=== PATIENT | female | born 1990 | race Caucasian/White ===

== ENCOUNTER 2022-11-09 01:42 | Inpatient (IN) | payer BC ==
[2022-11-09] MEDS ORDERED: TRANEXAMIC 1,000 MG/100ML-NACL 1,000 MG in EMPTY BAG 1 BAG IV PRN (02:26)
[2022-11-09] MEDS ORDERED: LIDOCAINE 0.5% (PF) 5 MG/ML (50 ML SDV) SQ PRN (02:26)
[2022-11-09] MEDS ORDERED: CARBOPROST TROMETHAMINE 250 MCG/ML 1 ML AMP IM PRN (02:26)
[2022-11-09] MEDS ORDERED: OXYTOCIN 10 UNIT/ML 1 ML VIAL IM PRN (02:26)
[2022-11-09] MEDS ORDERED: miSOPROStoL 200 MCG TAB PO PRN (02:26)
[2022-11-09] MEDS ORDERED: TERBUTALINE 1 MG/ML VIAL SQ PRN (02:26)
[2022-11-09] MEDS ORDERED: METHYLERGONOVINE 0.2 MG/ML 1 ML AMP IM PRN (02:26)
[2022-11-09] MEDS ORDERED: OXYTOCIN 30 UNITS/500 ML NS 30 UNIT in SALINE 1 500ML.BAG IV SCH (02:30)
[2022-11-09 05:14] LABS: Basophils # (A) 0.1 k/uL (0-0.2); Basophils % (A) 0 %; Eosinophils # (A) 0.1 k/uL (0-0.7); Eosinophils % (A) 1 %; HCT 35.4 % (34.0-46.0); Lymphocytes # (A) 2.4 k/uL (1.0-4.8); Lymphocytes % (A) 18 %; MCH 30.5 pg (25.0-35.0); MCHC 33.9 g/dL (31.0-37.0); MCV 89.9 fL (80.0-100.0); Mean Platelet Volume 8.6; Monocytes # (A) 0.7 k/uL (0-1.0); Monocytes % (A) 5 %; Neutrophils # (A) 9.7 k/uL (1.3-7.7); Neutrophils % (A) 75 %; Platelet Count 214 k/uL (150-450); RBC 3.94 m/uL (3.80-5.40); RDW 12.8 % (11.5-15.5)
[2022-11-09] MEDS: LACTATED RINGERS 1,000 ML IV SCH ×3 (05:16→21:01)
[2022-11-09 10:49] LABS: Glucose,Whole Blood 83 mg/dL (70-110)
[2022-11-09] MEDS ORDERED: fentaNYL (PF) 50 MCG/ML 5 ML AMP ONE (13:14)
[2022-11-09] MEDS ORDERED: ROPIVACAINE 5 MG/ML 20 ML AMPULE ONE (13:14)
[2022-11-09] MEDS ORDERED: SODIUM CHLORIDE 0.9% 100 ML BAG ONE (13:14)
--- NOTE | 2022-11-09 13:28 | P.HPOB ---
History of Present Illness H&P Date: 11/09/22 Chief Complaint: Spontaneous rupture of membranes This is a 31-year-old female 1 para 0 with an estimated date of confinement of 11/14/2022, estimated gestational age of 39-2/7 weeks, who presents to labor and delivery with complaints of spontaneous rupture membranes with clear fluid noted at approximately 12:55 AM this morning. She was feeling mild cramping at that time but has started to feel stronger contractions now. care has been with Dr. Goss and has been uncomplicated per patient. She does have a note of a small succenturiate lobe noted on pelvic ultrasounds. Her 1 hour Glucola was high but 3 hour was within normal limits. labs: Group B streptococcus-negative One hour Glucola-147 Three-hour Glucola-within normal limits MaterniT 21-negative Hepatitis B surface antigen-negative RPR-nonreactive Rubella-immune Blood type-A+ HIV-nonreactive Hemoglobin-13 Toxoplasma screen-negative Hepatitis C virus antibody-negative Random glucose-80 GC/chlamydia/Trichomonas-negative Obstetrical history: Social history: She is . 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 Review of Systems Constitutional: Denies chills, Denies fever Eyes: denies blurred vision, denies pain Ears, nose, mouth and throat: Denies headache, Denies sore throat Cardiovascular: Denies chest pain, Denies shortness of breath Respiratory: Denies cough Gastrointestinal: Reports abdominal pain (Irregular contractions) Genitourinary: Reports pelvic pain, Reports Musculoskeletal: Reports low back pain Past Medical History Past Medical History: No Reported History History of Any Multi-Drug Resistant Organisms: None Reported Past Surgical History: No Surgical Hx Reported Past Anesthesia/Blood Transfusion Reactions: No Reported Reaction Past Psychological History: No Psychological Hx Reported Smoking Status: Never smoker Past Alcohol Use History: Rare Past Drug Use History: None Reported - Past Family History Mother Family Medical History: Hypertension Father Family Medical History: Hypertension Medications and Allergies Home Medications Medication Instructions Recorded Confirmed Type Vit No.179/Iron/Folic 1 each PO DAILY 11/09/22 11/09/22 History [ Tablet] Allergies Allergy/AdvReac Type Severity Reaction Status Date / Time COVID-19 (SARS-CoV-2) Allergy Anaphylaxis Verified 11/09/22 07:21 vaccine, corinna Latex, Natural Rubber Allergy Swelling Verified 11/09/22 02:01 tdap vaccine Allergy Anaphylaxis Uncoded 11/09/22 07:21 Exam Osteopathic Statement: *. No significant issues noted on an osteopathic structural exam other than those noted in the History and Physical/Consult. Vital Signs Temp Pulse Resp BP Pulse Ox 11/09/22 02:28 96.2 F L 94 16 118/83 99 11/09/22 01:52 96.2 F L 94 16 118/83 99 Intake and Output 11/08/22 11/09/22 11/09/22 22:59 06:59 14:59 Other: # Voids 2 Weight 80.739 kg HEENT: Within normal limits Heart: Regular rate and rhythm Lungs: Clear to auscultation bilaterally Abdomen: Cervix: On admission was 1 cm/70%/-2, positive amnisure with clear fluid noted. Currently she is 4-5 cm/100%/-2 to -1, no palpable fore bag. heart tones: 140s with good variability and reactive with occasional mild variable decelerations and some early decelerations. Contractions: Currently every 3-5 minutes. Extremities: Negative Homans Results Result Diagrams: 11/09/22 04:32 Abnormal Lab Results - Last 24 Hours (Table) 11/09/22 Range/Units 04:32 WBC 13.0 H (3.8-10.6) k/uL Neutrophils # 9.7 H (1.3-7.7) k/uL Assessment and Plan (1) 39 weeks gestation of Current Visit: Yes Status: Acute Code(s): Z3A.39 - 39 WEEKS GESTATION OF RUMA PRINCE SNOMED Code(s): 61101222 Plan: Oxytocin augmentation of labor. Per patient request, this was held for 4 hours after rupture of membranes. She was attempting to go with out any pain medication, however now she feels that she would like an epidural. We'll continue with oxytocin augmentation of labor and epidural anesthesia. Expectant management.
[2022-11-09] MEDS ORDERED: AMPICILLIN 2,000 MG in SODIUM CHLORIDE 0.9% 100 ML IVPB STA (18:11)
--- NOTE | 2022-11-09 20:22 | P.PROBDLV ---
Vaginal Delivery Note - . Vaginal Delivery Note: The patient progressed to complete dilation after oxytocin augmentation of labor and epidural anesthesia. She did receive 1 dose of antibiotic at about 18 hours of rupture of membranes. Once reaching complete, she began pushing. Infant's head came to a crown. With one further push, the 's head delivered across the perineum in a left occiput anterior lie followed by the anterior right shoulder. At this time meconium stained fluid was noted. Nose and mouth were bulb suctioned. With one further push, the remainder the infant easily delivered reducing nuchal cord times one around the body with delivery. Infant was placed on mother's abdomen and nose and mouth were again bulb suctioned. Cord was clamped and cut. Infant was then taken to mother's chest for skin to skin and evaluated by nursing staff. A viable male infant was noted with scores of 9 at 1 minute and 9 at 5 minutes and weight of 7 pounds 4.4 ounces. Placenta delivered shortly thereafter, intact, with a three-vessel cord. A succenturate lobe was noted. Uterus contracted fairly well after oxytocin was given and uterine massage was carried out. Inspection of the perineum revealed a second-degree perineal laceration. This area was anesthetized with 1% lidocaine and then sutured with 3-0 and 2-0 Vicryl suture in the usual multilayer fashion. Bilateral periurethral abrasions were also noted but were hemostatic. Bladder was drained with a latex free catheter. Estimated blood loss is approximately 200 mL's. Both mother and are in stable condition.
[2022-11-09] MEDS ORDERED: diphenhydrAMINE 50 MG CAP PO PRN (21:17)
[2022-11-09] MEDS ORDERED: diphenhydrAMINE 50 MG/ML 1 ML VIAL IVP PRN ×2 (21:17)
[2022-11-09] MEDS ORDERED: HYDROCORTISONE 2.5% RECTAL CREAM 30 GM TUBE RECTAL PRN (21:17)
[2022-11-09] MEDS ORDERED: LANOLIN CREAM 5 GM TUBE TOPICAL PRN (21:17)
[2022-11-09] MEDS ORDERED: ZOLPIDEM 5 MG TAB PO PRN (21:17)
[2022-11-09] MEDS ORDERED: BENZOCAINE/MENTHOL SPRAY 1 GM/SPRAY AEROSOL TOPICAL PRN (21:17)
[2022-11-09] MEDS ORDERED: SIMETHICONE 80 MG CHEWABLE PO PRN (21:17)
[2022-11-09] MEDS ORDERED: diphenhydrAMINE 25 MG CAP PO PRN (21:17)
[2022-11-10] MEDS: IBUPROFEN 600 MG TAB PO PRN ×3 (04:32→18:28)
[2022-11-10] MEDS: ACETAMINOPHEN TAB 325 MG TAB PO PRN ×3 (06:36→20:58)
[2022-11-10] MEDS: SENNOSIDES-DOCUSATE SODIUM 1 EACH TAB PO SCH ×2 (08:24→20:57)
[2022-11-10 10:38] LABS: Basophils % (A) 0 %; Eosinophils # (A) 0.1 k/uL (0-0.7); Eosinophils % (A) 1 %; HCT 28.7 % (34.0-46.0); Lymphocytes % (A) 12 %; MCH 30.8 pg (25.0-35.0); MCHC 34.1 g/dL (31.0-37.0); MCV 90.4 fL (80.0-100.0); Monocytes # (A) 0.8 k/uL (0-1.0); Monocytes % (A) 5 %; Neutrophils # (A) 12.8 k/uL (1.3-7.7); Neutrophils % (A) 81 %; Platelet Count 204 k/uL (150-450); RBC 3.17 m/uL (3.80-5.40); RDW 13.1 % (11.5-15.5); WBC 15.9 k/uL (3.8-10.6)
[2022-11-10 10:40] LABS: HGB 9.8 gm/dL (11.4-16.0)
--- NOTE | 2022-11-10 12:55 | P.PNOBGVD ---
Subjective - Subjective Principal diagnosis: Status post vaginal delivery day #1 Interval history: Patient is doing well. She is breast-feeding. Lochia is decreasing. Her pain is fairly well controlled with her pain medications. She denies any dizziness or lightheadedness. Patient reports: Reports appetite normal, Reports voiding normally, Reports pain well controlled, Reports ambulating normally [place]: doing well, nursing well Objective - Latest Vital Signs Latest vital signs: Vital Signs Temp Pulse Resp BP Pulse Ox 11/10/22 08:00 97.9 F 95 18 94/60 98 11/10/22 04:00 98.6 F 106 H 16 113/72 11/10/22 00:00 98.1 F 113 H 16 119/72 11/09/22 22:02 98.1 F 110 H 16 112/71 11/09/22 21:32 98.6 F 117 H 16 115/76 11/09/22 21:02 112 H 16 116/66 11/09/22 20:47 115 H 16 117/62 11/09/22 20:32 98.3 F 131 H 16 131/69 11/09/22 20:17 115 H 16 124/62 11/09/22 20:02 136 H 16 137/68 Intake and Output 11/09/22 11/10/22 11/10/22 22:59 06:59 14:59 Intake Total 196.533 303.467 600 Output Total 350 Balance -153.467 303.467 600 Intake: Intake, IV Titration 196.533 303.467 Amount Oxytocin 30 Units/500 ml 196.533 303.467 Ns 30 unit In Saline 1 500ml.bag @ Per Protocol IV .Q0M [facility] Rx#:[id number] Oral 600 Output: Estimated Blood Loss 200 Output, Quantitative 150 Blood Loss Other: # Voids 1 1 - Exam Extremities: Present: normal. Absent: tenderness Abdomen: Present: normal appearance, soft. Absent: distention, tenderness Uterus: Present: normal, firm. Absent: tenderness - Labs Labs: Abnormal Lab Results - Last 24 Hours (Table) 11/10/22 Range/Units 06:27 WBC 15.9 H (3.8-10.6) k/uL RBC 3.17 L (3.80-5.40) m/uL Hgb 9.8 L D (11.4-16.0) gm/dL Hct 28.7 L (34.0-46.0) % Neutrophils # 12.8 H (1.3-7.7) k/uL Assessment and Plan Assessment: Status post vaginal delivery day #1 Prolonged rupture membranes (1) 39 weeks gestation of Current Visit: Yes Status: Acute Code(s): Z3A.39 - 39 WEEKS GESTATION OF SNOMED Code(s): 85064233 Plan: Continue with care today. Anticipate discharge home tomorrow.
--- NOTE | 2022-11-10 13:36 | P.MSEPDOC ---
Presenting Problems - Arrival Data Date of Arrival on Unit: 11/09/22 Time of Arrival on Unit: 01:42 Mode of Transport: Wheelchair - Complaint OB-Reason for Admission/Chief Complaint: Rule Out SROM Medical History - Information : 1 Para: 0 Term: 0 : 0 Abortions: Spontaneous or Elective: 0 Number of Living Children: 0 - Gestational Age Gestational Age by PRABHA (wks/days): 39 Weeks and 2 Days Review of Systems - Review of Systems Constitutional: No problems Breast: No problems ENT: No problems Cardiovascular: No problems Respiratory: No problems Gastrointestinal: No problems Genitourinary: No problems Musculoskeletal: No problems Neurological: No problems Skin: No problems Vital Signs - Temperature Temperature: 97.9 F Temperature Source: Oral - Pulse Pulse Oximetery Pulse Rate: 95 Pulse Assessment Method: Pulse Oximetry - Respirations Respiratory Rate: 18 Oxygen Delivery Method: Room Air O2 Sat by Pulse Oximetry: 98 - Blood Pressure Right Arm Blood Pressure: 94/60 Blood Pressure Mean: 71 Blood Pressure Source: Automatic Cuff Medical Screen Scoring - Assessment - Baby A Heart Rate - NICHD Category: Category I (Normal) Maternal Triage Index - Maternal Triage Index Presenting for scheduled procedure w/no complaint: No - Stat/Priority 1 Stat Priority 1: No - Urgent/Priority 2 Urgent Priority 2: No - Prompt/Priority 3 Prompt Priority 3: No - Non-Urgent/Priority 4 Non-Urgent Priority 4: Yes Criteria Met for Priority 4: patient presents to triage for AROM at 0055 Disposition - Disposition OB Disposition: Admit I agree with the RN Medical Screening Exam: Yes Case reviewed; plan agreed upon as documented in EMR&OBIX.: Yes Diagnosis: ENCOUNTER FOR FULL-TERM UNCOMPLICATED DELIVERY
[2022-11-10 23:48] VITALS: TEMP 98.6
[2022-11-11] MEDS: IBUPROFEN 600 MG TAB PO PRN ×2 (00:13→07:40)
[2022-11-11] MEDS: ACETAMINOPHEN TAB 325 MG TAB PO PRN (02:47)
--- NOTE | 2022-11-11 06:35 | P.PNOBGVD ---
Subjective - Subjective Patient reports: Reports appetite normal, Reports voiding normally, Reports pain well controlled, Reports ambulating normally : doing well Objective - Latest Vital Signs Latest vital signs: Vital Signs Temp Pulse Resp BP Pulse Ox 11/10/22 23:46 98.6 F 81 14 105/67 98 11/10/22 15:47 97.9 F 87 16 105/68 97 11/10/22 13:36 97.9 F 95 18 94/60 98 11/10/22 08:00 97.9 F 95 18 94/60 98 Intake and Output 11/10/22 11/10/22 11/11/22 14:59 22:59 06:59 Intake Total 600 Balance 600 Intake: Oral 600 Other: # Voids 1 1 3 # Bowel Movements 1 - Exam Lungs: bilateral: normal Chest: Normal S1, Normal S2 Extremities: Present: normal Abdomen: Present: normal appearance, soft Uterus: Present: normal, firm - Labs Labs: Abnormal Lab Results - Last 24 Hours (Table) 11/10/22 Range/Units 06:27 WBC 15.9 H (3.8-10.6) k/uL RBC 3.17 L (3.80-5.40) m/uL Hgb 9.8 L D (11.4-16.0) gm/dL Hct 28.7 L (34.0-46.0) % Neutrophils # 12.8 H (1.3-7.7) k/uL Assessment and Plan Assessment: Post day #2. Patient is resting without complaints and wishes to go home. Vital signs are stable she is afebrile. Uterus is firm nontender and she is having normal lochia. My impression this is a normal course. Plan is to continue routine care discharge home later today (1) Normal delivery Current Visit: Yes Status: Acute Code(s): O80 - ENCOUNTER FOR FULL-TERM UNCOMPLICATED DELIVERY SNOMED Code(s): 00405328
--- NOTE | 2022-11-11 06:39 | P.DS ---
Providers Date of admission: 11/09/22 02:13 Expected date of discharge: 11/11/22 Attending physician: Bacilio Goss Primary care physician: Stated None - Discharge Diagnosis(es) (1) Normal delivery Current Visit: Yes Status: Acute Hospital Course: Please see dictated H&P and delivery note on this patient's admission and delivery. In brief summary this is a pleasant 31-year-old 1 para 0 female 39-2/7 weeks gestation who is admitted to labor and delivery in active labor. Patient was on to have a normal vaginal delivery of viable male . Please see dictated delivery note. day #2 patient's felt to be stable for discharge home follow up with me in 6 weeks. Procedures: Normal spontaneous vaginal delivery Patient Condition at Discharge: Good Plan - Discharge Summary New Discharge Prescriptions: New Ibuprofen [Motrin] 600 mg PO Q6HR PRN #40 tab PRN Reason: Mild Pain (Scale 1 To 3) No Action Vit No.179/Iron/Folic [ Tablet] 1 each PO DAILY Discharge Medication List Vit No.179/Iron/Folic [ Tablet] 1 each PO DAILY 11/09/22 [History] Ibuprofen [Motrin] 600 mg PO Q6HR PRN #40 tab 11/11/22 [Rx] Follow up Appointment(s)/Referral(s): Bacilio Goss MD [STAFF PHYSICIAN] - 6 Weeks Patient Instructions/Handouts: Vaginal Delivery (DC) Activity/Diet/Wound Care/Special Instructions: No intercourse or anything per vagina for 6 weeks. Please call if any fever, chills, excessive vaginal bleeding, and/or abdominal pain Discharge Disposition: HOME SELF-CARE
[2022-11-11 08:27] VITALS: BP 110/75; PULSE 95; RESP 17
== END 2022-11-11 10:16 | disposition home or self-care (01) | DRG 807 ==
LOC: FBPOP 01:42 → 4FBP 02:13
PROVIDERS: ADMIT Obstetrics & Gynecology; ATTEND Obstetrics & Gynecology
PROC: 10E0XZZ Delivery of Products of Conception, External Approach (ICD-10-PCS; principal; 2022-11-09)
PROC: 0KQM0ZZ Repair Perineum Muscle, Open Approach (ICD-10-PCS; 2022-11-09)
PROC: 3E033VJ Introduction of Other Hormone into Peripheral Vein, Percutaneous Approach (ICD-10-PCS; 2022-11-09)
PROC: 4A0HXCZ Measurement of Products of Conception, Cardiac Rate, External Approach (ICD-10-PCS; 2022-11-09)
DX: O42.02 Full-term premature rupture of membranes, onset of labor within 24 hours of rupture (principal); Z37.0 Single live birth; O69.81X0 Labor and delivery complicated by cord around neck, without compression, not applicable or unspecified; O70.1 Second degree perineal laceration during delivery; O76 Abnormality in fetal heart rate and rhythm complicating labor and delivery; O77.0 Labor and delivery complicated by meconium in amniotic fluid; Z3A.39 39 weeks gestation of pregnancy; Z91.040 Latex allergy status; Z88.7 Allergy status to serum and vaccine; Z91.048 Other nonmedicinal substance allergy status
CPT/HCPCS: 59025; 84112; 85025; 86850; 86900; 86901; 99213

== ENCOUNTER → 2023-11-08 | Outpatient (CLI) | payer BC | END | disposition home or self-care (01) | LOC: LABWHC1 08:52 | PROVIDERS: ATTEND Obstetrics & Gynecology | DX: Z34.91 Encounter for supervision of normal pregnancy, unspecified, first trimester (principal) | CPT/HCPCS: 36415; 84702 ==

== ENCOUNTER → 2024-10-01 | Outpatient (CLI) | payer BC | END | disposition home or self-care (01) | LOC: LABWHC1 10:31 | PROVIDERS: ATTEND Obstetrics & Gynecology | DX: Z34.01 Encounter for supervision of normal first pregnancy, first trimester (principal) | CPT/HCPCS: 36415; 84702 ==

== ENCOUNTER → 2024-10-29 | Outpatient (CLI) | payer BC | END | disposition home or self-care (01) | LOC: LABWHC1 12:03 | PROVIDERS: ATTEND Obstetrics & Gynecology | DX: Z34.81 Encounter for supervision of other normal pregnancy, first trimester (principal) | CPT/HCPCS: 36415; 84702 ==

== ENCOUNTER → 2024-10-31 | Outpatient (CLI) | payer BC | END | disposition home or self-care (01) | LOC: LABMAIN 12:46 | PROVIDERS: ATTEND Obstetrics & Gynecology | DX: Z34.81 Encounter for supervision of other normal pregnancy, first trimester (principal) | CPT/HCPCS: 84702 ==